=== PATIENT | male | born 1975 | race Two or more races ===

== ENCOUNTER 2019-10-14 17:24 | Emergency (ER) | payer OTHER ==
[2019-10-14] MEDS ORDERED: Lidocaine 1% PF 2 ML SDV INJECT ONE ×2 (17:43→17:45)
[2019-10-14] MEDS ORDERED: Bacitracin Oint 1 GM U/D Packet TOP ONE (17:43)
[2019-10-14] MEDS ORDERED: Diphtheria,Pertussis(Acell),Tetanus Vaccine 0.5 ML Syringe IM ONE (17:43)
[2019-10-14] MEDS ORDERED: Octyl 2-Cyanoacrylate 1 Tube TOP ONE (17:53)
--- NOTE | 2019-10-14 18:12 | EDM.PDOC ---
ED HPI GENERAL MEDICAL PROBLEM - General Chief Complaint: Laceration Stated Complaint: LEFT HAND INJURY Time Seen by Provider: 10/14/19 17:42 Source of Information: Reports: Patient History Limitations: Reports: No Limitations - History of Present Illness INITIAL COMMENTS - FREE TEXT/NARRATIVE: HISTORY AND PHYSICAL: History of present illness: Patient is a 44-year-old male who presents to the emergency room with complaints of laceration of the left second, third, fourth and fifth digits. He states he was using a hand saw to cut a piece of trim when it fell and he tried to remove his hand away from the saw. He is unsure of his last tetanus update. He offers no systemic complaints. Review of systems: As per history of present illness and below otherwise all systems reviewed and negative. Past medical history: As per history of present illness and as reviewed below otherwise noncontributory. Surgical history: As per history of present illness and as reviewed below otherwise noncontributory. Social history: See social history for further information Family history: As per history of present illness and as reviewed below otherwise noncontributory. Physical exam: General: Developed and well-nourished 44-year-old male. Alert and oriented. Nontoxic-appearing and in no acute distress. HEENT: Atraumatic, normocephalic, pupils equal and reactive bilaterally, negative for conjunctival pallor or scleral icterus, mucous membranes moist, TMs normal bilaterally, throat clear, neck supple, nontender, trachea midline. No drooling or trismus noted. No meningeal signs. No hot potato voice noted. Lungs: Clear to auscultation, breath sounds equal bilaterally, chest nontender. Heart: S1S2, regular rate and rhythm without overt murmur Abdomen: Soft, nondistended, nontender. Skin: 1.5 cm laceration to pad of distal left second digit. 1 cm laceration to pad of distal left third digit, 1cm superficial adjacent laceration just below the first. 0.5 cm "X" shaped laceration to pad of distal left fourth digit. 1 cm laceration to pad of distal left 5th digit. Remaining skin is intact, warm, dry. No lesions or rashes noted. Extremities: Atraumatic, moves all extremities per self without difficulty or deficits, negative for cords or calf pain. Neurovascular unremarkable. Neuro: Awake, alert, oriented. Cranial nerves II through XII unremarkable. Cerebellum unremarkable. Motor and sensory unremarkable throughout. Exam nonfocal. Notes: The area was thoroughly cleansed with chlorhexidine and wound wash. 1% lidocaine was used to anesthetize the second, third, fifth digits. 4 oh dissolvable suture was placed, #4 interrupted sutures were placed on the second digit, 3 interrupted sutures were placed on the third digit, #3 interrupted sutures were placed on the fifth digit. The x-shaped laceration on the fourth digit and the superficial laceration to third digit was Dermabond. Patient tolerated well. Nonstick dressings were applied. Patient states that with his line of work he is constantly getting his hands dirty and would prefer to be on a prophylactic antibiotic. Will place on Keflex. We reviewed signs and symptoms that would prompt him to return to the emergency room. Supportive care measures were reviewed and discussed. Voices understanding and is agreeable to plan of care. Denies any further questions or concerns at this time. Diagnostics: None Therapeutics: Tetanus, Dermabond, lidocaine, bacitracin Prescription: Keflex Impression: Laceration, multiple Plan: 1. Keep the area clean and dry. Continue to monitor for signs of infection. Sutures to be removed in 7-10 days. 2. Tylenol and/or ibuprofen as needed for pain management. 3. Please follow-up with your primary care provider in the next 1-2 days. Return to the ED as needed and as discussed. Definitive disposition and diagnosis as appropriate pending reevaluation and review of above. left fingers Pain Score (Numeric/FACES): 5 - Related Data Allergies Allergy/AdvReac Type Severity Reaction Status Date / Time No Known Allergies Allergy Verified 10/14/19 17:30 Home Meds: Home Meds cephALEXin [Keflex] 500 mg PO BID 5 Days #10 cap 10/14/19 [Rx] Past Medical History HEENT History: Reports: None Cardiovascular History: Reports: None Respiratory History: Reports: None Gastrointestinal History: Reports: None Genitourinary History: Reports: None Musculoskeletal History: Reports: None Neurological History: Reports: None Psychiatric History: Reports: None Endocrine/Metabolic History: Reports: None Hematologic History: Reports: None Immunologic History: Reports: None Oncologic (Cancer) History: Reports: None Dermatologic History: Reports: None - Infectious Disease History Infectious Disease History: Reports: Other (See Below) Other Infectious Disease History: Staph - Past Surgical History Head Surgeries/Procedures: Reports: None HEENT Surgical History: Reports: None Cardiovascular Surgical History: Reports: None Respiratory Surgical History: Reports: None GI Surgical History: Reports: None Male Surgical History: Reports: None Endocrine Surgical History: Reports: None Neurological Surgical History: Reports: None Musculoskeletal Surgical History: Reports: Other (See Below) Oncologic Surgical History: Reports: None Dermatological Surgical History: Reports: None Social & Family History - Family History Family Medical History: Noncontributory - Tobacco Use Smoking Status *Q: Never Smoker Second Hand Smoke Exposure: No - Caffeine Use Caffeine Use: Reports: None - Recreational Drug Use Recreational Drug Use: No ED ROS GENERAL - Review of Systems Review Of Systems: Comprehensive ROS is negative, except as noted in HPI. ED EXAM, SKIN/RASH Exam: See Below (See dictation) ED SKIN PROCEDURES - Laceration/Wound Repair Left 2nd digit Appearance: Linear, Clean Distal NVT: Neuro & Vascular Intact, No Tendon Injury Anesthetic Type: Local Local Anesthesia - Lidocaine (Xylocaine): 1% Plain Local Anesthetic Volume: 1cc Skin Prep: Chlorhexidine (Hibiciens), Saline, Sterile Drape Saline Irrigation (cc's): 50 Exploration/Debridement/Repair: Wound Explored, In a Bloodless Field, Explored to Base, No Foreign Material Found Closed with: Sutures Lac/Wound length In cm: 1.5 Suture Size: 4-0 # of Sutures: 4 Suture Type: Interrupted, Simple, Other (Chromic) Drain Placement: No Sterile Dressing Applied: Provider Tetanus Status Addressed: Yes Complications: No Left 3rd digit Appearance: Subcutaneous, Linear Distal NVT: Neuro & Vascular Intact, No Tendon Injury Anesthetic Type: Local Local Anesthesia - Lidocaine (Xylocaine): 1% Plain Local Anesthetic Volume: 1cc Skin Prep: Chlorhexidine (Hibiciens), Saline, Sterile Drape Saline Irrigation (cc's): 50 Exploration/Debridement/Repair: Wound Explored, In a Bloodless Field, Explored to Base, No Foreign Material Found Closed with: Sutures, Dermabond (To the superficial laceration below stitched laceration) Lac/Wound length In cm: 1 Suture Size: 4-0 # of Sutures: 3 Suture Type: Interrupted, Simple, Other (Chromic) Drain Placement: No Sterile Dressing Applied: Provider Tetanus Status Addressed: Yes Complications: No Left 4th digit Appearance: Superficial, Irregular, Clean Distal NVT: Neuro & Vascular Intact, No Tendon Injury Skin Prep: Chlorhexidine (Hibiciens), Saline, Sterile Drape Saline Irrigation (cc's): 50 Exploration/Debridement/Repair: Wound Explored, In a Bloodless Field Closed with: Dermabond Lac/Wound length In cm: 0.5 Drain Placement: No Sterile Dressing Applied: Provider Tetanus Status Addressed: Yes Complications: No Left 5th digit Appearance: Subcutaneous, Linear, Clean Distal NVT: Neuro & Vascular Intact, No Tendon Injury Anesthetic Type: Local Local Anesthesia - Lidocaine (Xylocaine): 1% Plain Local Anesthetic Volume: 1cc Skin Prep: Chlorhexidine (Hibiciens) Saline Irrigation (cc's): 50 Exploration/Debridement/Repair: Wound Explored, In a Bloodless Field, Explored to Base, No Foreign Material Found Closed with: Sutures Lac/Wound length In cm: 1 Suture Size: 4-0 # of Sutures: 3 Suture Type: Interrupted, Simple, Other (Chromic) Drain Placement: No Sterile Dressing Applied: Provider Tetanus Status Addressed: Yes Complications: No Course - Vital Signs Last Recorded V/S: Last Vital Signs Temp 98.0 F 10/14/19 17:29 Pulse 91 10/14/19 17:29 Resp 18 10/14/19 17:29 BP 154/100 H 10/14/19 17:29 Pulse Ox 95 10/14/19 17:29 - Orders/Labs/Meds Orders: Active Orders 24 hr Category Date Time Status Vaccines to be Administered [RC] PER UNIT ROUTINE Care 10/14/19 17:43 Ordered Meds: Medications Discontinued Medications Generic Name Dose Route Start Last Admin Trade Name Bobby PRN Reason Stop Dose Admin Bacitracin 1 dose 10/14/19 17:43 10/14/19 17:49 Bacitracin Oint 1 Gm TOP 10/14/19 17:44 1 dose ONETIME ONE Administration Diphtheria/Tetanus/Acell Pertussis 0.5 ml 10/14/19 17:43 10/14/19 17:48 Adacel IM 10/14/19 17:44 0.5 ml .ONCE ONE Administration Lidocaine HCl 2 ml 10/14/19 17:43 10/14/19 17:49 Xylocaine-Mpf 1% INJECT 10/14/19 17:44 2 ml ONETIME ONE Administration Lidocaine HCl 2 ml 10/14/19 17:45 10/14/19 17:49 Xylocaine-Mpf 1% INJECT 10/14/19 17:46 2 ml ONETIME ONE Administration Octyl Cyanoacrylate 1 applic 10/14/19 17:53 10/14/19 17:57 Dermabond Advance TOP 10/14/19 17:54 1 applic ONETIME ONE Administration Departure - Departure Time of Disposition: 18:11 Disposition: Home, Self-Care 01 Clinical Impression: Laceration of multiple sites of left hand and fingers without complication Qualifiers: Encounter type: initial encounter Qualified Code(s): S61.412A - Laceration without foreign body of left hand, initial encounter; S61.219A - Laceration without foreign body of unspecified finger without damage to nail, initial encounter - Discharge Information Prescriptions: cephALEXin [Keflex] 500 mg PO BID 5 Days #10 cap Instructions: Laceration Care, Adult, [id number] Referrals: Roshni August DO [Primary Care Provider] - Forms: ED Department Discharge Additional Instructions: The following information is given to patients seen in the emergency department who are being discharged to home. This information is to outline your options for follow-up care. We provide all patients seen in our emergency department with a follow-up referral. The need for follow-up, as well as the timing and circumstances, are variable depending upon the specifics of your emergency department visit. If you don't have a primary care physician on staff, we will provide you with a referral. We always advise you to contact your personal physician following an emergency department visit to inform them of the circumstance of the visit and for follow-up with them and/or the need for any referrals to a consulting specialist. The emergency department will also refer you to a specialist when appropriate. This referral assures that you have the opportunity for follow-up care with a specialist. All of these measure are taken in an effort to provide you with optimal care, which includes your follow-up. Under all circumstances we always encourage you to contact your private physician who remains a resource for coordinating your care. When calling for follow-up care, please make the office aware that this follow-up is from your recent emergency room visit. If for any reason you are refused follow-up, please contact the [facility] Emergency Department at and asked to speak to the emergency department charge nurse. [facility] [address] [place] [address] [facility] [address] [place] [address] 1. Keep the area clean and dry. Continue to monitor for signs of infection. Sutures should dissolve on their own. 2. Tylenol and/or ibuprofen as needed for pain management. 3. Please follow-up with your primary care provider in the next 1-2 days. Return to the ED as needed and as discussed. Sepsis Event Note (ED) - Evaluation Sepsis Screening Result: No Definite Risk - Focused Exam Vital Signs: Vital Signs Temp Pulse Resp BP Pulse Ox 10/14/19 17:29 98.0 F 91 18 154/100 H 95 - My Orders Last 24 Hours: My Active Orders 10/14/19 17:43 Vaccines to be Administered [RC] PER UNIT ROUTINE - Assessment/Plan Last 24 Hours: My Active Orders 10/14/19 17:43 Vaccines to be Administered [RC] PER UNIT ROUTINE
[2019-10-14 18:37] VITALS: BP 157/90; PULSE 83
== END 2019-10-14 18:18 | disposition home or self-care (01) ==
LOC: MW.ED 17:24
DX: S61.211A Laceration without foreign body of left index finger without damage to nail, initial encounter (principal); S61.213A Laceration without foreign body of left middle finger without damage to nail, initial encounter; S61.215A Laceration without foreign body of left ring finger without damage to nail, initial encounter; S61.217A Laceration without foreign body of left little finger without damage to nail, initial encounter; Z23 Encounter for immunization; W27.0XXA Contact with workbench tool, initial encounter
CPT/HCPCS: 12002; 90471; 90715; 99282; A9270; J2001

== ENCOUNTER 2020-09-28 20:52 | Emergency (ER) | payer OTHER ==
[2020-09-28] MEDS ORDERED: Tetracaine HCl/PF 0.5% 4 ML Bottle EYEBOTH ONE (21:11)
--- NOTE | 2020-09-28 21:39 | EDM.PDOC ---
ED HPI GENERAL MEDICAL PROBLEM - General Chief Complaint: Eye Problems Stated Complaint: EYE PAIN Time Seen by Provider: 09/28/20 21:01 Source of Information: Reports: Patient History Limitations: Reports: No Limitations - History of Present Illness INITIAL COMMENTS - FREE TEXT/NARRATIVE: HISTORY AND PHYSICAL: History of present illness: Patient is a 45-year-old male who presents to the emergency department secondary to a 5-hour history of foreign body to the right eye causing discomfort. 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 Patient reports that since the incident, he has been rinsing his right eye with water but his pain has been increasing and he feels like there is still something in his eye. He notes he has been "rubbing his eye". Patient states that he still able to see out of the eye and denies visual changes. Patient reports that he does not use contacts or wear glasses. Patient reports that he is not up to date on his tetanus. Patient denies fever, chills, chest pain, shortness of breath, or cough. Denies headache, neck stiff ness, change in vision, syncope, or near syncope. Denies nausea, vomiting, abdominal pain, diarrhea, constipation, or dysuria. Has not noted any blood in urine or stool. Patient has been eating and drinking ap propriately. Review of systems: As per history of present illness and below otherwise all systems reviewed and negative. Past medical history: As per history of present illness and as reviewed below otherwise noncontributory. Surgical history: As per history of present illness and as reviewed below otherwise noncontributory. Social history: See social history for further information Family history: As per history of present illness and as reviewed below otherwise noncontributory. Physical exam: General: Patient is alert, oriented, and in no acute distress. Patient sitting comfortably on exam table. Patient's vitals stable and reviewed by me. HEENT: Visual acuity intact. EOMS intact without pain or difficulty. Foreign body/abrasion noted at the 12 o'clock position just superior to the pupil, fluorescein stain performed with an increased area of stain uptake at the 12 o'clock position after FB removal just superior to the pupil. Bilateral upper and lower lids everted without sign of foreign body. Negative for corneal opacity, hyphema, or hypopyon. Otherwise, atraumatic, normocephalic, pupils equal and reactive bilaterally, negative for conjunctival pallor or scleral icte mikaela, mucous membranes moist, TMs normal bilaterally, throat clear, neck supple, nontender, trachea midline. No drooling or trismus noted. No meningeal signs. No hot potato voice noted. Lungs: Clear to auscultation, breath sounds equal bilaterally, chest nontender. Heart: S1S2, regular rate and rhythm without overt murmur Abdomen: Soft, nondistended, nontender. Negative for masses or hepatosplenom egaly. Negative for costovertebral tenderness. Pelvis: Stable nontender. Genitourinary: Deferred. Rectal: Deferred. Skin: Intact, warm, dry. No lesions or rashes noted. Extremities: Atraumatic, negative for cords or calf pain. Neurovascular unremarkable. Neuro: Awake, alert, oriented. Cranial nerves II through XII unremarkable. Cerebellum unremarkable. Motor and sensory unremarkable throughout. Exam nonfocal. Notes: Before fluorescein staining, tetracaine was applied to the eye. Anesthesia was achieved I was able to see a small abrasion/foreign body at the 12 o'clock position just superior to the pupil. A cotton tip applicator was used to remove the foreign body. Foreign body easily removed with qtip and found speck like foreign body unspecified. Fluorescein stain was then applied and an area of increased uptake of stain was noted in the same location where the foreign body was removed. Discussed with patient the signs and symptoms prompt return to the emergency department. Discussed with patient's the importance of follow-up with primary care and eye care provider. Discussed with patient that he should not rub the eye. Voices understanding and is agreeable to plan of care. Denies any further questions or concerns at this time. Diagnostics: Fluorescein stain with Masters lamp examination Therapeutics: Tetracaine, tetanus update Prescription: Erythromycin ophthalmic ointment Impression: Foreign body with corneal abrasion, right eye Plan: 1. Apply medication to affected eye as prescribed and as discussed. You can alternate ibuprofen and Tylenol as directed and as discussed. 2. Do not rub the affected eye as discussed. Call tomorrow morning to establish an appointment with your telephony engineer for a formal eye exam as discussed. 3. Return to the ED as needed and as discussed. Definitive disposition and diagnosis as appropriate pending reevaluation and review of above. right eye Pain Score (Numeric/FACES): 7 - Related Data Allergies Allergy/AdvReac Type Severity Reaction Status Date / Time No Known Allergies Allergy Verified 09/28/20 21:02 Home Meds: Home Meds Erythromycin Base [Erythromycin 0.5% Ophth Oint] 1 applic OP Q4H 5 Days #1 tube 09/28/20 [Rx] Past Medical History HEENT History: Reports: None Cardiovascular History: Reports: None Respiratory History: Reports: None Gastrointestinal History: Reports: None Genitourinary History: Reports: None Musculoskeletal History: Reports: None Neurological History: Reports: None Psychiatric History: Reports: None Endocrine/Metabolic History: Reports: None Hematologic History: Reports: None Immunologic History: Reports: None Oncologic (Cancer) History: Reports: None Dermatologic History: Reports: None - Infectious Disease History Infectious Disease History: Reports: None, Other (See Below) Other Infectious Disease History: Staph - Past Surgical History Head Surgeries/Procedures: Reports: None HEENT Surgical History: Reports: None Cardiovascular Surgical History: Reports: None Respiratory Surgical History: Reports: None GI Surgical History: Reports: None Male Surgical History: Reports: None Endocrine Surgical History: Reports: None Neurological Surgical History: Reports: None Musculoskeletal Surgical History: Reports: Other (See Below) Oncologic Surgical History: Reports: None Dermatological Surgical History: Reports: None Social & Family History - Family History Family Medical History: No Pertinent Family History - Caffeine Use Caffeine Use: Reports: None - Recreational Drug Use Recreational Drug Use: No ED ROS GENERAL - Review of Systems Review Of Systems: Comprehensive ROS is negative, except as noted in HPI. ED EXAM GENERAL W FULL EYE - Physical Exam Exam: See Below (see dictation) Course - Vital Signs Last Recorded V/S: Last Vital Signs Temp 97.4 F 09/28/20 21:00 Pulse 95 09/28/20 21:00 Resp 16 09/28/20 21:00 BP 150/90 H 09/28/20 21:00 Pulse Ox 97 09/28/20 21:00 - Orders/Labs/Meds Meds: Medications Discontinued Medications Generic Name Dose Route Start Last Admin Trade Name Freq PRN Reason Stop Dose Admin Diphtheria/Tetanus/Acell Pertussis 0.5 ml 09/28/20 22:05 09/28/20 22:22 Diphtheria,Pertussis(Acell),Tetanus Vaccine 0.5 Ml Syringe IM 09/28/20 22:06 0.5 ml .ONCE ONE Administration Tetracaine HCl 2 ml 09/28/20 21:11 09/28/20 22:26 Tetracaine Hcl/Pf 0.5% 4 Ml Bottle EYEBOTH 09/28/20 21:12 2 ml ASDIRECTED ONE Administration Departure - Departure Time of Disposition: 21:39 Disposition: Home, Self-Care 01 Clinical Impression: Foreign body, eye Qualifiers: Encounter type: initial encounter Laterality: right Qualified Code(s): T15.91XA - Foreign body on external eye, part unspecified, right eye, initial encounter - Discharge Information Prescriptions: Erythromycin Base [Erythromycin 0.5% Ophth Oint] 1 applic OP Q4H 5 Days #1 tube Instructions: Eye Foreign Body, [id number] Referrals: Roshni August DO [Primary Care Provider] - Forms: ED Department Discharge Additional Instructions: The following information is given to patients seen in the emergency department who are being discharged to home. This information is to outline your options for follow-up care. We provide all patients seen in our emergency department with a follow-up referral. The need for follow-up, as well as the timing and circumstances, are variable depending upon the specifics of your emergency department visit. If you don't have a primary care physician on staff, we will provide you with a referral. We always advise you to contact your personal physician following an emergency department visit to inform them of the circumstance of the visit and for follow-up with them and/or the need for any referrals to a consulting specialist. The emergency department will also refer you to a specialist when appropriate. This referral assures that you have the opportunity for follow-up care with a specialist. All of these measure are taken in an effort to provide you with optimal care, which includes your follow-up. Under all circumstances we always encourage you to contact your private physician who remains a resource for coordinating your care. When calling for follow-up care, please make the office aware that this follow-up is from your recent emergency room visit. If for any reason you are refused follow-up, please contact the [facility] Emergency Department at and asked to speak to the emergency department charge nurse. [facility] [address] [place] [address] [facility] [address] [place] [id number] 1. Apply medication to affected eye as prescribed and as discussed. You can alternate ibuprofen and Tylenol as directed and as discussed. 2. Do not rub the affected eye as discussed. Call tomorrow morning to establish an appointment with your telephony engineer for a formal eye exam as discussed. 3. Return to the ED as needed and as discussed. Sepsis Event Note (ED) - Evaluation Sepsis Screening Result: No Definite Risk
[2020-09-28 21:40] VITALS: BP 150/90; PULSE 95
[2020-09-28] MEDS ORDERED: Diphtheria,Pertussis(Acell),Tetanus Vaccine 0.5 ML Syringe IM ONE (22:05)
== END 2020-09-28 22:25 | disposition home or self-care (01) ==
LOC: MW.ED 20:52
DX: S05.01XA Injury of conjunctiva and corneal abrasion without foreign body, right eye, initial encounter (principal); Z23 Encounter for immunization; W22.8XXA Striking against or struck by other objects, initial encounter
CPT/HCPCS: 65220; 90471; 90715; 99282; 99283-25